=== PATIENT | female | born 1965 | race Two or more races ===

== ENCOUNTER 2018-07-06 16:41 | Emergency (ER) | payer MEDICAID, OTHER ==
[~2018-07-06] VITALS: Ht 165.1 cm; Wt 112.0 kg
[2018-07-06 18:33] VITALS: BP 174/74
== END 2018-07-06 19:36 | disposition home or self-care (01) ==
LOC: ER 16:46
DX: B37.89 Other sites of candidiasis (principal); H01.9 Unspecified inflammation of eyelid